=== PATIENT | male | born 1990 | race Caucasian/White ===

== ENCOUNTER → 2017-04-04 | Outpatient (CLI) | payer OTHER ==
--- NOTE | 2017-04-04 14:34 | CT ---
EXAMINATION TYPE: CT pelvis w con DATE OF EXAM: 04/04/2017 COMPARISON: NONE INDICATION: Left inguinal hernia DLP: 458.8 mGycm, Automated exposure control for dose reduction was used. CONTRAST: 100 mL of Omnipaque 300. Study performed with Oral Contrast TECHNIQUE: Axial images were obtained from mid abdomen to the pubic rami in the axial plane at 5 mm t hick sections. Reconstructed images are reviewed on the computer in the coronal plane. FINDINGS: CT PELVIS: Loops of bowel within the abdomen and pelvis are normal. There are loops of bowel which are incom pletely distended or lack oral contrast limiting their evaluation. Appendix: Normal as visualized. Urinary bladder: Normal. Genitourinary structures: Prostate is mild prominence. Osseous structures: No suspicious lytic or sclerotic lesions. No inguinal hernia is identified. No enlarged inguinal adenopathy is evident. IMPRESSIONS: 1. Normal CT pelvis.
== END | disposition home or self-care (01) ==
LOC: RADCTMAIN 13:30
PROVIDERS: ATTEND Surgery
DX: K40.91 Unilateral inguinal hernia, without obstruction or gangrene, recurrent (principal)
CPT/HCPCS: 72193; Q9967

== ENCOUNTER 2017-10-28 19:58 | Emergency (ER) | payer BC, OTHER ==
[2017-10-28 20:09] VITALS: PULSE 90; RESP 20; TEMP 98.5
[2017-10-28 20:10] VITALS: BP 143/74
[2017-10-28] MEDS ORDERED: PROPARACAINE 0.5% OPHTH DROPS 15 ML BTL RIGHT EYE STA (20:11)
--- NOTE | 2017-10-28 20:39 | ED ---
Eye Problem HPI - General Chief complaint: Eye Problems Stated complaint: FB eye Time Seen by Provider: 10/28/17 20:11 Source: patient, RN notes reviewed Mode of arrival: ambulatory Limitations: no limitations - History of Present Illness Initial comments: This is a 27-year-old male who presents to the emergency department with chief complaint of eye foreign body. Patient states that yesterday morning at work he was grinding metal. He states that he was not wearing protective eyewear. He states that he got shavings of the metal into his right eye. He states that he presented to [facility] and that they did nothing for him. He states that he then returned to work and used a magnet and successfully removed metal shavings from his own eye. Patient presents to the emergency department today with complaint of a dull ache in the right eye. He states that he sometimes has a foreign body sensation. Denies any vision changes, significant eye pain or vision loss. Patient states that he has a friend that works with an ophthamologist. He states that he showed her the pictures of the metal shavings removed from his eye and she told him to come to the emergency department. He states that she also started him on Polytrim eyedrops. He does not wear contact lenses. Denies fevers or chills, chest pain or shortness of breath, abdominal pain, nausea or vomiting, dizziness or headache. - Related Data Home Medications Medication Instructions Recorded Confirmed No Known Home Medications 10/28/17 10/28/17 Allergies Allergy/AdvReac Type Severity Reaction Status Date / Time No Known Allergies Allergy Verified 10/28/17 20:09 Review of Systems ROS Statement: Those systems with pertinent positive or pertinent negative responses have been documented in the HPI. ROS Other: All systems not noted in ROS Statement are negative. Past Medical History Past Medical History: No Reported History History of Any Multi-Drug Resistant Organisms: None Reported Past Surgical History: Tonsillectomy Past Psychological History: No Psychological Hx Reported Smoking Status: Current every day smoker Past Alcohol Use History: Occasional Past Drug Use History: None Reported General Exam - General Exam Comments Initial Comments: General: Awake and alert, well-developed; in no apparent distress. HEENT: Head atraumatic, normocephalic. Pupils are equal, round and reactive to light. Extraocular movements intact. Right conjunctiva is non-injected. No evidence of foreign body within the eye or under superior or inferior eyelids. On fluorescein staining, no abrasions or ulcers are noted. Negative Duncan's test. Oropharynx moist without erythema or exudate. Neck: Supple. Normal ROM. Cardiovascular: Regular rate and rhythm. No murmurs, rubs or gallops. Chest symmetrical. Respiratory: Lungs clear to auscultation bilaterally. No wheezes, rales or rhonchi. Normal respiratory effort with no use of accessory muscles. Musculoskeletal: Normal ROM, no tenderness bilateral upper and lower extremities. Ambulating normally. Skin: [place], warm and dry without rashes or lesions. Neurological: Alert and oriented x3. CN II-XII grossly intact. Speech is fluent and answers are appropriate. No focal neuro deficits. Psychiatric: Normal mood and affect. No overt signs of depression or anxiety noted. Limitations: no limitations Course Vital Signs 10/28/17 20:05 Temperature 98.5 F Pulse Rate 90 Respiratory 20 Rate Blood Pressure 143/74 O2 Sat by Pulse 99 Oximetry Medical Decision Making - Medical Decision Making This is a 27-year-old male who presents to the emergency department with chief complaint of right eye foreign body. Patient reports getting metal shavings into his eye yesterday. He has already presented to [facility] and prescribed Polytrim antibiotic eyedrops from a friend who works with an integrated marketing manager. Patient reports a dull ache in his right eye. Denies any vision changes or significant pain. No evidence of foreign body within the eye or under eyelids. Conjunctivae non-injected. No evidence of ulcers or abrasions. Recommended follow-up with ophthalmology if no improvement in his symptoms. He was provided with contact information. Vital signs are stable and he is in no acute distress. He will be discharged home at this time. All questions answered. Disposition Clinical Impression: Eye foreign body Disposition: HOME SELF-CARE Condition: Good Instructions: Eye Foreign Body (ED) Additional Instructions: Please follow up with ophthalmology if no improvement in symptoms. Please follow up with primary care provider within 1-2 days. Return to emergency department if symptoms should worsen or any concerns arise. Is patient prescribed a controlled substance at d/c from ED?: No Referrals: Alistair Zimmer MD [Primary Care Provider] - 1-2 days Ann-Marie Celestin MD [STAFF PHYSICIAN] - 1-2 days Time of Disposition: 20:38
== END 2017-10-28 20:42 | disposition home or self-care (01) ==
LOC: EC 19:58
DX: T15.91XA Foreign body on external eye, part unspecified, right eye, initial encounter (principal); F17.200 Nicotine dependence, unspecified, uncomplicated; Y93.89 Activity, other specified; Y92.69 Other specified industrial and construction area as the place of occurrence of the external cause; Y99.0 Civilian activity done for income or pay
CPT/HCPCS: 99283